=== PATIENT | male | born 1970 | race Caucasian/White ===

== ENCOUNTER 2017-02-08 10:05 | Emergency (ER) | payer SELFPAY ==
[2017-02-08] MEDS ORDERED: Ketorolac Tromethamine 60 MG/2 ML VIAL ONE (10:33)
== END 2017-02-08 11:07 | disposition home or self-care (01) ==
LOC: NAV ERS 10:05
DX: M51.36 Other intervertebral disc degeneration, lumbar region (principal); M48.06 Spinal stenosis, lumbar region; M99.83 Other biomechanical lesions of lumbar region; F31.9 Bipolar disorder, unspecified; F17.200 Nicotine dependence, unspecified, uncomplicated; Z79.899 Other long term (current) drug therapy
CPT/HCPCS: 96372; J1885

== ENCOUNTER 2017-03-13 02:52 | Emergency (ER) | payer SELFPAY ==
[2017-03-13] MEDS ORDERED: Ibuprofen 200 MG TAB ONE (03:24)
[2017-03-13] MEDS ORDERED: Sulfameth/Trimethoprim DS 800-160mg TAB ONE (03:24)
== END 2017-03-13 03:35 | disposition home or self-care (01) ==
LOC: NAV ERS 02:52
DX: M70.22 Olecranon bursitis, left elbow (principal); F31.9 Bipolar disorder, unspecified; F43.10 Post-traumatic stress disorder, unspecified; F17.210 Nicotine dependence, cigarettes, uncomplicated; Z79.899 Other long term (current) drug therapy
CPT/HCPCS: 99283

== ENCOUNTER 2018-11-14 21:04 | Emergency (ER) | payer SELFPAY ==
[2018-11-14] MEDS ORDERED: Lidocaine 1% (PF) 30 ML VIAL ONE (21:21)
[2018-11-14] MEDS ORDERED: Lidocaine 4% Topical Sol 50 ML BOT ONE (21:21)
[2018-11-14] MEDS ORDERED: Sulfameth/Trimethoprim DS 800-160mg TAB ONE (21:24)
[2018-11-14] MEDS ORDERED: traMADol HCl 50 MG TAB ONE (21:24)
== END 2018-11-14 22:06 | disposition home or self-care (01) ==
LOC: NAV ERS 21:04
DX: L03.011 Cellulitis of right finger (principal); F43.10 Post-traumatic stress disorder, unspecified; F31.9 Bipolar disorder, unspecified; F17.210 Nicotine dependence, cigarettes, uncomplicated; Z79.899 Other long term (current) drug therapy
CPT/HCPCS: 26010; 87070; 87077; 87205; J2001

== ENCOUNTER 2019-02-09 11:11 | Emergency (ER) | payer SELFPAY ==
[2019-02-09 12:16] LABS: #Basophils 0.1 thou/uL (0.0-0.2); #Eosinphils 0.2 thou/uL (0.0-0.7); #Lymphocytes 1.4 thou/uL (1.20-3.40); #Monocytes 0.4 thou/uL (0.11-0.59); #Neutrophils 4.5 thou/uL (1.40-6.50); %Basophils 1.2 % (0.0-1.0); %Eosinophils 2.5 % (0.0-10.0); %Lymphocytes 21.8 % (21.0-51.0); %Monocytes 5.6 % (0.0-10.0); Hemoglobin 11.5 g/dL (14.0-18.0); Mean Corpuscular HGB CONC 32.6 g/dL (32.0-36.0); Mean Corpuscular Hemoglobin 28.7 pg (27.0-31.0); Mean Platelet Volume 5.7 fL (7.4-10.4); Platelet Count 400 thou/uL (130-400); RBC Distribution Width 12.6 % (11.5-14.5); Red Blood Cell (RBC) Count 3.99 mill/uL (4.70-6.10); White Blood Cell (WBC) Count 6.5 thou/uL (4.8-10.8)
[2019-02-09 12:29] LABS: ALT (SGPT) 21 U/L (8-55); AST (SGOT) 21 U/L (5-34); Albumin 4.2 g/dL (3.5-5.0); Alkaline Phosphatase 86 U/L (40-150); Anion Gap 15 mmol/L (10-20); BUN (Urea Nitrogen) 18 mg/dL (8.9-20.6); Bilirubin, Total 0.2 mg/dL (0.2-1.2); Calc. Creatinine Clearance 0 mL/min (70-130); Calcium 9.2 mg/dL (7.8-10.44); Carbon Dioxide 21 mmol/L (22-29); Chloride 106 mmol/L (98-107); Estimated GFR-MDRD 86; Globulin 3.1 g/dL (2.4-3.5); Glucose 95 mg/dL (70-105); Potassium 3.6 mmol/L (3.5-5.1); Protein, Total 7.3 g/dL (6.0-8.3); Sodium 138 mmol/L (136-145)
[2019-02-09 12:30] LABS: Acetaminophen Less than 6.0 mcg/mL (10.0-30.0); Alcohol Less than 10 mg/dL (Less than 10); CK (CPK) 307 U/L (30-200); Salicylate Less than 8.0 mg/dL (15.0-30.0)
[2019-02-09 13:05] LABS: Bilirubin Negative (Negative); Blood, Urine Negative (Negative); Clarity Clear (Clear); Glucose, Urine (Dipstick) Negative (Negative); Leukocyte Negative (Negative); Nitrite Negative (Negative); Protein, Urine (Dipstick) Negative (Neg-Trace); Urobilinogen 0.2 mg/dL (Less than 2)
[2019-02-09 13:19] LABS: THC/Cannabinoid Screen Detected (NotDetected)
[2019-02-09 13:20] LABS: Amphetamine Detected (NotDetected); Barbiturates Screen Not Detected (NotDetected); Benzodiazepine Screen Not Detected (NotDetected); Cocaine Metabolite Screen Not Detected (NotDetected); Medtox Control Line Valid? VALID (VALID); Methadone Not Detected (NotDetected); Methamphetamine Detected (NotDetected); Opiate Screen Not Detected (NotDetected); Oxycodone Screen Not Detected (NotDetected); Phencyclidine (PCP) Not Detected (NotDetected); Tricyclic Screen Not Detected (NotDetected)
== END 2019-02-09 13:35 | disposition home or self-care (01) ==
LOC: NAV ERS 11:11
DX: F41.9 Anxiety disorder, unspecified (principal); F43.10 Post-traumatic stress disorder, unspecified; F31.9 Bipolar disorder, unspecified; F17.210 Nicotine dependence, cigarettes, uncomplicated; Z79.899 Other long term (current) drug therapy
CPT/HCPCS: 80053; 80306; 80307; 81003; 82550; 84443; 85025; 99283

== ENCOUNTER 2020-01-11 11:00 | Emergency (ER) | payer MEDICARE, SELFPAY ==
[2020-01-11] MEDS ORDERED: Sodium Chloride 0.9% 1,000 ML ONE (11:42)
--- NOTE | 2020-01-11 11:57 | CT ---
Exam: Head CT without contrast HISTORY: Syncope. COMPARISON: 07/02/2015 FINDINGS: Hemorrhage: No intraparenchymal hemorrhage or extra-axial hematoma. Brain parenchyma: Cortical bolanos-white matter differentiation is preserved. No mass effect or midline shift. Basilar cisterns are patent. Ventricular system: Ventricles and sulci are patent and symmetric. Calvarium: Intact. Sinuses and mastoid air cells: Adequate aeration. Old left lamina propecia fracture. IMPRESSION: No acute intracranial process.
[2020-01-11 12:01] LABS: #Basophils 0.1 thou/uL (0.0-0.2); #Eosinphils 0.1 thou/uL (0.0-0.7); #Lymphocytes 1.5 thou/uL (1.20-3.40); #Monocytes 0.5 thou/uL (0.11-0.59); #Neutrophils 2.9 thou/uL (1.40-6.50); %Basophils 1.3 % (0.0-1.0); %Eosinophils 1.5 % (0.0-10.0); %Lymphocytes 29.6 % (21.0-51.0); %Monocytes 9.4 % (0.0-10.0); %Neutrophils 58.2 % (42.0-75.0); Hemoglobin 11.3 g/dL (14.0-18.0); Mean Corpuscular HGB CONC 32.1 g/dL (32.0-36.0); Mean Corpuscular Hemoglobin 29.1 pg (27.0-31.0); Mean Corpuscular Volume 90.6 fL (78.0-98.0); Mean Platelet Volume 7.2 fL (7.4-10.4); Platelet Count 253 thou/uL (130-400); RBC Distribution Width 13.1 % (11.5-14.5); Red Blood Cell (RBC) Count 3.89 mill/uL (4.70-6.10)
--- NOTE | 2020-01-11 12:06 | RAD ---
XR Chest Pa Lat STANDARD HISTORY: Syncope COMPARISON: None FINDINGS: The heart size is normal. The lungs are well expanded without focal areas of consolidation, pneumothorax or pleural effusions. IMPRESSION: No radiographic evidence of acute cardiopulmonary process.
--- NOTE | 2020-01-11 12:08 | CT ---
CT CERVICAL SPINE NONCONTRAST: DATE: 01/11/2020 HISTORY: cervical trauma: 49-year-old male status post fall from syncope FINDINGS: There are no jumped or perched facets. There is no evidence of acute fracture. The vertebral body hei ghts are maintained. There is no prevertebral soft tissue swelling. There are degenerative disc changes and facet osteoarthrosis. Severe right facet DJD at C2-3 and C3-4. Moderate disc space narrow ing at C5-6 and especially C6-7. Loss of lordosis with kyphosis centered at lower C-spine. Left-lateral curvature of cervical spine in response to thoracic dextroscoliosis. IMPRESSION: 1) Cervical spondylosis. 2) no evidence of acute fracture or acute traumatic subluxation.
[2020-01-11 12:11] LABS: ALT (SGPT) 18 U/L (8-55); AST (SGOT) 21 U/L (5-34); Albumin 3.9 g/dL (3.5-5.0); Alkaline Phosphatase 64 U/L (40-110); Anion Gap 14 mmol/L (10-20); BUN (Urea Nitrogen) 16 mg/dL (8.9-20.6); Bilirubin, Total 0.3 mg/dL (0.2-1.2); CK (CPK) 255 U/L (30-200); Calc. Creatinine Clearance 0 mL/min (70-130); Calcium 8.3 mg/dL (7.8-10.44); Carbon Dioxide 23 mmol/L (22-29); Chloride 105 mmol/L (98-107); Estimated GFR-MDRD 85; Globulin 2.7 g/dL (2.4-3.5); Glucose 72 mg/dL (70-105); Potassium 3.6 mmol/L (3.5-5.1); Protein, Total 6.6 g/dL (6.0-8.3); Sodium 138 mmol/L (136-145)
== END 2020-01-11 13:10 | disposition home or self-care (01) ==
LOC: NAV ERS 11:00
DX: T67.1XXA Heat syncope, initial encounter (principal); D64.9 Anemia, unspecified; F31.9 Bipolar disorder, unspecified; F43.10 Post-traumatic stress disorder, unspecified; F17.210 Nicotine dependence, cigarettes, uncomplicated; Z79.899 Other long term (current) drug therapy
CPT/HCPCS: 70450; 71046; 72125; 80053; 82550; 84484; 85025; 93005; 96360; J7050

== ENCOUNTER 2020-04-29 06:52 | Emergency (ER) | payer MEDICARE ==
[2020-04-29] MEDS ORDERED: Ketorolac Tromethamine 60 MG/2 ML VIAL ONE (07:20)
== END 2020-04-29 07:44 | disposition home or self-care (01) ==
LOC: NAV ERS 06:52
DX: M54.12 Radiculopathy, cervical region (principal); M48.00 Spinal stenosis, site unspecified; F17.210 Nicotine dependence, cigarettes, uncomplicated; F31.9 Bipolar disorder, unspecified; Z79.899 Other long term (current) drug therapy
CPT/HCPCS: 96372; 99283; J1885

== ENCOUNTER 2022-06-25 00:21 | Emergency (ER) | payer MEDICARE, OTHER, SELFPAY ==
[2022-06-25] MEDS ORDERED: Sodium Chloride 0.9% 1,000 ML ONE ×3 (00:46→03:02)
[2022-06-25 01:13] LABS: #Basophils 0.1 thou/uL (0.0-0.2); #Eosinphils 0.1 thou/uL (0.0-0.7); #Lymphocytes 1.9 thou/uL (1.20-3.40); #Monocytes 0.3 thou/uL (0.11-0.59); #Neutrophils 6.3 thou/uL (1.40-6.50); %Basophils 0.8 % (0.0-1.0); %Eosinophils 1.2 % (0.0-10.0); %Lymphocytes 22.3 % (21.0-51.0); %Monocytes 3.1 % (0.0-10.0); %Neutrophils 72.6 % (42.0-75.0); Hemoglobin 14.4 g/dL (14.0-18.0); Mean Corpuscular HGB CONC 31.7 g/dL (32.0-36.0); Mean Corpuscular Hemoglobin 29.3 pg (27.0-31.0); Mean Corpuscular Volume 92.5 fl (78.0-98.0); Mean Platelet Volume 6.9 fL (7.4-10.4); Platelet Count 356 10x3/uL (130-400); Red Blood Cell (RBC) Count 4.92 mill/uL (4.70-6.10); White Blood Cell (WBC) Count 8.6 10x3/uL (4.8-10.8)
[2022-06-25 01:48] LABS: ALT (SGPT) 22 U/L (8-55); AST (SGOT) 21 U/L (5-34); Acetaminophen Less than 10.0 mcg/mL (10.0-30.0); Albumin 4.4 g/dL (3.5-5.0); Alcohol Less than 10 mg/dL (Less than 10); Alkaline Phosphatase 72 U/L (40-110); Anion Gap 19 mmol/L (10-20); BUN (Urea Nitrogen) 10 mg/dL (8.9-20.6); Bilirubin, Total 0.4 mg/dL (0.2-1.2); Calc. Creatinine Clearance 0 mL/min (70-130); Calcium 9.7 mg/dL (7.8-10.44); Carbon Dioxide 22 mmol/L (22-29); Chloride 103 mmol/L (98-107); Estimated GFR 82; Globulin 3.2 g/dL (2.4-3.5); Glucose 224 mg/dL (70-105); Lipase 45 U/L (8-78); Potassium 3.8 mmol/L (3.5-5.1); Protein, Total 7.6 g/dL (6.0-8.3); Salicylate Less than 8.0 mg/dL (15.0-30.0)
[2022-06-25 01:52] LABS: Sodium 140 mmol/L (136-145)
[2022-06-25 02:00] LABS: Bilirubin Negative (Negative); Blood, Urine Negative (Negative); Clarity Clear (Clear); Glucose, Urine (Dipstick) Negative (Negative); Ketone, Urine Negative (Negative); Leukocyte Negative (Negative); Nitrite Negative (Negative); Protein, Urine (Dipstick) Negative (Neg-Trace); Specific Gravity, Urine 1.015 (1.005-1.030); Urobilinogen 0.2 mg/dL (Less than 2)
[2022-06-25 02:06] LABS: Methamphetamine Detected (NotDetected); Opiate Screen Detected (NotDetected); THC/Cannabinoid Screen Detected (NotDetected)
[2022-06-25 02:07] LABS: Amphetamine Detected (NotDetected); Barbiturates Screen Not Detected (NotDetected); Benzodiazepine Screen Not Detected (NotDetected); Cocaine Metabolite Screen Not Detected (NotDetected); Medtox Control Line Valid? VALID (VALID); Methadone Not Detected (NotDetected); Oxycodone Screen Not Detected (NotDetected); Phencyclidine (PCP) Not Detected (NotDetected); Tricyclic Screen Not Detected (NotDetected)
== END 2022-06-25 07:24 | disposition home or self-care (01) ==
LOC: NAV ERS 00:21
DX: F19.10 Other psychoactive substance abuse, uncomplicated (principal); M54.9 Dorsalgia, unspecified; F17.210 Nicotine dependence, cigarettes, uncomplicated
CPT/HCPCS: 71045; 80053; 80306; 80307; 81003; 83690; 84484; 85025; 93005; 96360; 96361; J7050

== ENCOUNTER 2024-02-20 13:13 | Emergency (ER) | payer OTHER ==
[2024-02-20] MEDS ORDERED: Lidocaine 1% w/Epinephrine 1:100K 20 ML VIAL ONE (13:21)
== END 2024-02-20 14:01 | disposition home or self-care (01) ==
LOC: NAV ERS 13:13
DX: S61.412A Laceration without foreign body of left hand, initial encounter (principal); R00.0 Tachycardia, unspecified; F17.210 Nicotine dependence, cigarettes, uncomplicated; W26.0XXA Contact with knife, initial encounter
CPT/HCPCS: 12001; 99282

== ENCOUNTER 2024-02-22 23:35 | Emergency (ER) | payer OTHER ==
[2024-02-23] MEDS ORDERED: Bacitracin 1 PK ONE (00:18)
== END 2024-02-23 00:23 | disposition home or self-care (01) ==
LOC: NAV ERS 23:35
DX: S01.511A Laceration without foreign body of lip, initial encounter (principal); F17.210 Nicotine dependence, cigarettes, uncomplicated; W22.8XXA Striking against or struck by other objects, initial encounter; Y92.34 Swimming pool (public) as the place of occurrence of the external cause
CPT/HCPCS: 12053